=== PATIENT | female | born 1960 | race Caucasian/White ===

== ENCOUNTER 2021-12-17 18:30 | Emergency (ER) | payer OTHER, MEDICARE ==
[~2021-12-17] VITALS: Ht 172.7 cm; Wt 81.8 kg
[~2021-12-17 18:30] MED LIST: ALEVE OR; HYDROCODONE OR
[2021-12-17] MEDS ORDERED: traMADol 50 MG TAB PO ONE (21:00)
[2021-12-17] MEDS ORDERED: METH-1165 PO (21:02)
[2021-12-17 21:12] VITALS: BP 133/74
== END 2021-12-17 21:20 | disposition home or self-care (01) ==
LOC: EDBD 18:30 → M ED 18:30
DX: M54.50 Low back pain, unspecified (principal); M54.2 Cervicalgia; M25.511 Pain in right shoulder; M25.512 Pain in left shoulder; V49.49XA Driver injured in collision with other motor vehicles in traffic accident, initial encounter; Z88.5 Allergy status to narcotic agent; Z88.6 Allergy status to analgesic agent; Z79.899 Other long term (current) drug therapy